=== PATIENT | female | born 1945 | race Caucasian/White ===

== ENCOUNTER 2025-08-23 19:15 | Emergency (ER) | payer MEDICARE, BC, SELFPAY ==
[2025-08-23 19:20] VITALS: BP 154/84
--- NOTE | 2025-08-23 20:38 | ED.GENMED ---
History of Present Illness
<Lenore Neely PA-C - Last Filed: 08/24/25 16:16>
General
Chief Complaint: Fall
Time Seen by Provider: 08/23/25 19:49
History of Present Illness
History of Present Illness:
Nicole is an 80-year-old female with past medical history of hypothyroidism headaches on aspirin for unknown reason presents with complaint of a fall this afternoon. Denies loss of consciousness but did hit her head on the floor. Left knee pain and
swelling and chest wall and sternum pain. Denies headache, nausea, vomiting. No changes in vision.
Past History
<Lenore Neely PA-C - Last Filed: 08/24/25 16:16>
Past History
ED Past Medical History: HTN, Hypercholesterolemia and Hypothyroidism; Negative CAD
ED Past Surgical History: Appendectomy, Cholecystectomy and Gynecological (Tubel)
Social History
Tobacco: Former smoker
Alcohol: Occasional
Drug: None
Personal:
Living: alone
Family History
Family History: Hypertension
Phy Exam
<Lenore Neely PA-C - Last Filed: 08/24/25 16:16>
General Physical Exam
General Presentation: well appearing and no apparent distress
General Skin: warm and dry
General Habitus: normal
General Mental: alert
General Hydration: appears well hydrated
ENT Exam
ENT Exam: EOMI, pharynx normal, neck supple and normocephalic
Eye Exam
Eye Exam: PERRL, cornea clear and conjunctiva normal
Cardiovascular Exam
Cardiovascular Exam: regular rate/rhythm, no edema, no murmur and normal peripheral pulses
Pulmonary Exam
Pulmonary Exam: lungs clear, no respiratory distress, no rales, no crackles, no rhonchi, no stridor, no wheezing and no cough
Gastrointestinal Exam
Gastrointestinal Exam: normal bowel sounds, non tender, soft, no organomegaly, no pulsatile mass and non distended
Neurological Exam
Neurological Exam: alert, oriented x3, no motor deficits and speech normal
Musculoskeletal Exam
Musculoskeletal Exam: full ROM, no edema, joint swelling (Left knee) and other (Ecchymosis and swelling to left knee; bilateral chest wall pain and midsternal pain)
Skin Exam
Skin Exam: normal color, warm/dry, no rash and no petechia
Psychiatric Exam
Psychiatric Exam: normal mood/affect
Course
<Lenore Neely PA-C - Last Filed: 08/24/25 16:16>
Orders/Labs/Results
Orders:
Orders
08/23/25 20:04
CT Head W/o Iv Contrast Urgent
Comment:
Reason For Exam: fall w headstrike, on ASA
Chest wo Contrast CT [CT Chest W/o Iv Contrast] Urgent
Comment:
Reason For Exam: rib and sternum pain after fall
08/23/25 20:57
Knee, Left 4 or More Views [CR Knee - Left 4 Or More View*] Urgent
Comment:
Reason For Exam: left knee pain
08/23/25 21:18
BMP [Basic Metabolic Panel] Urgent
CBC/With Diff [Complete Blood Count/With Diff] Urgent
08/23/25 21:33
Tramadol HCl [Ultram] 50 mg PO NOW STA
08/23/25 22:48
Solomon Wrap Left-Treatment ONCE
08/23/25 22:49
Tramadol HCl [Ultram] 50 mg PO NOW STA
Abnormal Lab Results
08/23/25
21:18
RBC 4.08 L 10^6/uL
(4.20-5.40)
Hgb 11.6 L g/dL
(12.0-16.0)
Hct 35.9 L %
(37.0-47.0)
MCHC 32.3 L g/dL
(33.0-37.0)
Abs Immat Gran (auto) 0.1 H 10^3/uL
(0-0.05)
Absolute Neuts (auto) 8.1 H 10^3/uL
(1.4-6.5)
Absolute Monos (auto) 0.9 H 10^3/uL
(0.1-0.6)
Immature Gran % 0.9 H %
(0-0.5)
Neutrophils % 76.6 H %
(42.2-75.2)
Lymphocytes % 12.6 L %
(20.5-51.1)
Potassium 5.5 H mmol/L
(3.5-5.1)
Chloride 108 H mmol/L
(98-107)
BUN 32 H mg/dl
(7-17)
Glucose 113 H mg/dl
(70-99)
Calcium 10.5 H mg/dl
(8.4-10.2)
08/23/25 21:18
08/23/25 21:18
Vital Signs
Initial and Last Documented VS:
Initial Vital Signs
Temp Pulse Resp BP Pulse Ox
36.6 C 83 16 154/84 96
08/23/25 19:20 08/23/25 19:20 08/23/25 19:20 08/23/25 19:20 08/23/25 19:20
Last Documented Vital Signs
Temp Pulse Resp BP Pulse Ox
37.1 C 76 18 124/76 98
08/23/25 23:14 08/23/25 23:14 08/23/25 23:14 08/23/25 23:14 08/23/25 23:14
Lianglt;Sonal Stokes, MAINFRAME PROGRAMMER - Last Filed: 08/23/25 22:54>
Orders/Labs/Results
Orders:
Orders
08/23/25 20:04
CT Head W/o Iv Contrast Urgent
Comment:
Reason For Exam: fall w headstrike, on ASA
Chest wo Contrast CT [CT Chest W/o Iv Contrast] Urgent
Comment:
Reason For Exam: rib and sternum pain after fall
08/23/25 20:57
Knee, Left 4 or More Views [CR Knee - Left 4 Or More View*] Urgent
Comment:
Reason For Exam: left knee pain
08/23/25 21:18
BMP [Basic Metabolic Panel] Urgent
CBC/With Diff [Complete Blood Count/With Diff] Urgent
08/23/25 21:33
Tramadol HCl [Ultram] 50 mg PO NOW STA
08/23/25 22:48
Solomon Wrap Left-Treatment ONCE
08/23/25 22:49
Tramadol HCl [Ultram] 50 mg PO NOW STA
Abnormal Lab Results
08/23/25
21:18
RBC 4.08 L 10^6/uL
(4.20-5.40)
Hgb 11.6 L g/dL
(12.0-16.0)
Hct 35.9 L %
(37.0-47.0)
MCHC 32.3 L g/dL
(33.0-37.0)
Abs Immat Gran (auto) 0.1 H 10^3/uL
(0-0.05)
Absolute Neuts (auto) 8.1 H 10^3/uL
(1.4-6.5)
Absolute Monos (auto) 0.9 H 10^3/uL
(0.1-0.6)
Immature Gran % 0.9 H %
(0-0.5)
Neutrophils % 76.6 H %
(42.2-75.2)
Lymphocytes % 12.6 L %
(20.5-51.1)
Potassium 5.5 H mmol/L
(3.5-5.1)
Chloride 108 H mmol/L
(98-107)
BUN 32 H mg/dl
(7-17)
Glucose 113 H mg/dl
(70-99)
Calcium 10.5 H mg/dl
(8.4-10.2)
08/23/25 21:18
08/23/25 21:18
Vital Signs
Initial and Last Documented VS:
Initial Vital Signs
Temp Pulse Resp BP Pulse Ox
36.6 C 83 16 154/84 96
08/23/25 19:20 08/23/25 19:20 08/23/25 19:20 08/23/25 19:20 08/23/25 19:20
Last Documented Vital Signs
Temp Pulse Resp BP Pulse Ox
37.1 C 76 18 124/76 98
08/23/25 23:14 08/23/25 23:14 08/23/25 23:14 08/23/25 23:14 08/23/25 23:14
<Lenore Neely PA-C - Last Filed: 08/24/25 16:16>
MDM/Problems Addressed
Differential Diagnosis Includes:
Left knee is markedly swollen and ecchymotic. Concerning for fracture or hematoma. X-rays ordered. Given that patient struck her head and is on baby aspirin obtain CT head to rule out any intracranial injury. Patient is also reporting bilateral
chest wall pain and midsternal pain. On exam she is very tender to palpation. Will obtain CT chest to rule out any sternum or rib fractures. Lab work also ordered. Signed out to Ask Ziggy ZANA pending imaging and labs
<Sonal Stokes NP - Last Filed: 08/23/25 22:54>
MDM/Problems Addressed
Differential Diagnosis Includes:
Left knee is markedly swollen and ecchymotic. Concerning for fracture or hematoma. X-rays ordered. Given that patient struck her head and is on baby aspirin obtain CT head to rule out any intracranial injury. Patient is also reporting bilateral
chest wall pain and midsternal pain. On exam she is very tender to palpation. Will obtain CT chest to rule out any sternum or rib fractures. Lab work also ordered. Signed out to Ask Ziggy ZANA pending imaging and labs
9:20 p.m.
Xray knee initially read by this examiner; no acute bony abnormality, hardware intact, pre patellar STS. Cold compress to moderate hematoma left knee.
Tramadol given for knee pain
10:[address]: Radiology report read: No acute intracranial hemorrhage. Atrophy and small vessel ischemic disease acute nondisplaced right anterior fifth rib fracture. Subtle irregularity at the anterior aspect of the sixth rib bilaterally possible some
subtle nondisplaced fracture. No consolidation effusion or pneumothorax. Moderate amount of stool in the imaged portion of the colon.
Chest CT: Radiology report read: Acute nondisplaced right anterior fifth rib fracture. Subtle irregularity at the anterior aspect of the sixth ribs bilaterally possibly subtle nondisplaced fractures. Moderate amount of stool in the imaged portion
of the colon. No consolidation effusions or pneumothorax.
After Tramadol, Pt has been OOB and ambulating well with walker
Stable for discharge
<Lenore Neely PA-C - Last Filed: 08/24/25 16:16>
*Pulse Oximetry
SaO2: 96
Oxygen Mode of Delivery: Room air
<Sonal Stokes NP - Last Filed: 08/23/25 22:54>
*Pulse Oximetry
Patient hypoxic: not evaluated
*Critical Care Note
Total Time (30-74mins, 75-104mins- exclusive of procedures): Not Applicable
ED Attending Note
<Lenore Neely PA-C - Last Filed: 08/24/25 16:16>
-
Portions of this chart may have been created with voice recognition software.� Occasional wrong word or��sound alike� substitutions may have occurred due to the inherent limitations of voice recognition software.
Discharge Plan
Departure
Patient Disposition: Home (Routine Discharge)
Date of Disposition: 08/23/25
Time of Disposition: 22:52
Patient with high blood pressure during this ER visit?: No
Condition: Good
Discharge Problem:
Contusion of left knee, Contusion of right knee, Fall from slip, trip, or stumble, Fractured rib, Constipation
Instructions: Contusion (DC), Using Cold for Pain, Rib fracture or bruised rib - ED (DC), Constipation in adults - ED (DC)
Prescriptions:
No Action
pantoprazole 40 MG tablet,delayed release (DR/EC)
20 mg PO BID
diclofenac potassium 50 MG tablet
50 mg PO BID
levothyroxine [Synthroid] 88 MCG tablet
112 mcg PO DAILY
topiramate [Topamax] 50 MG tablet
50 mg PO BID
ondansetron 4 MG tablet,disintegrating
4 mg PO TIDPRN PRN (Reason: nausea/vomiting) Qty: 10 0RF
mirabegron [Myrbetriq] 50 MG tablet extended release 24 hr
50 mg PO DAILY
gabapentin enacarbil [Horizant] 600 MG tablet extended release
600 mg PO Daily
BillacidophparacfranciscaiBSanjivanimalis 1 EACH capsule
PO DAILY
cholecalciferol (vitamin D3) 2,000 UNITS tablet
2,000 units PO DAILY
methylphenidate HCl 10 MG tablet
10 mg PO DAILY
Daisy
100 mg PO DAILY
memantine 28 MG capsule,sprinkle,ER 24hr
28 mg PO DAILY AT 0700
duloxetine 60 MG capsule,delayed release(DR/EC)
60 mg PO DAILY AT 0700
duloxetine 30 MG capsule,delayed release(DR/EC)
30 mg PO DAILY
aspirin 81 MG tablet,delayed release (DR/EC)
81 mg PO HS 0RF
cholestyramine-aspartame [Cholestyramine Light] 1 PACKET powder in packet
1 packet PO BIDPRN PRN (Reason: diarrhea) 30 Days Qty: 60 0RF
Referrals:
Db Ashley MD [Family Provider, Internal Medicine] - As needed
Activity Restrictions/Additional Instructions:
As we discussed, wear the Solomon wrap as needed for swelling, support, comfort. Cold compress to the knee 20 minutes off and on while awake as much as you can in the next 2 days.
Tylenol 1000 mg every 8 hours as needed for mild to moderate pain
I sent a prescription to your pharmacy for tramadol 50 mg to take every 6 hours as needed for significant pain.
Interventions
Interventions:
*Risk Screen - Suicide Last Done: 08/23/25 19:20
*Neglect/Abuse Screening Last Done: 08/23/25 19:20
*Nursing Disposition Last Done: 08/23/25 23:14
Discharge Date and Time
Discharge Date/Time: 08/23/25 23:14
Print Language: MEXICAN
[2025-08-23 21:28] LABS: Hematocrit 35.9 % (37.0-47.0); Hemoglobin 11.6 g/dL (12.0-16.0); Mean Corp Hgb Conc. 32.3 g/dL (33.0-37.0); Mean Corpuscular Volume 88.0 fL (81.0-99.0); Nucleated Red Blood Cells % 0 %; Platelet Count 384 10^3/uL (130-400); Red Cell Dist. Width 13.7 % (11.5-14.5)
[2025-08-23] MEDS: ULTRAM 50 MG PO (21:38)
[2025-08-23 21:43] LABS: Blood Urea Nitrogen 32 mg/dl (7-17); Calcium 10.5 mg/dl (8.4-10.2); Carbon Dioxide 22 mmol/L (22-30); Chloride 108 mmol/L (98-107); Glucose 113 mg/dl (70-99); Potassium 5.5 mmol/L (3.5-5.1); Sodium 136 mmol/L (135-145); eGFR 56.25
[2025-08-23 23:14] VITALS: BP 124/76
== END 2025-08-23 23:14 | disposition home or self-care (01) ==
LOC: EMR 19:15
PROVIDERS: Surgery Trauma Surgery; EMERGENCY PHYSICIAN Student in an Organized Health Care Education/Training Program; FAMILY PHYSICIAN Internal Medicine
DX: S22.31XA Fracture of one rib, right side, initial encounter for closed fracture (principal); S80.02XA Contusion of left knee, initial encounter; S80.01XA Contusion of right knee, initial encounter; W01.0XXA Fall on same level from slipping, tripping and stumbling without subsequent striking against object, initial encounter; I10 Essential (primary) hypertension; E78.00 Pure hypercholesterolemia, unspecified; E03.9 Hypothyroidism, unspecified; K59.00 Constipation, unspecified
CPT/HCPCS: 99284; 70450; 71250; 73564; 80048; 85025